=== PATIENT | male | born 2000 | race American Indian/Alaskan Native ===

== ENCOUNTER 2019-08-19 20:14 | Emergency (ER) | payer BC ==
--- NOTE | 2019-08-19 21:42 | Event Note ---
ED Screening Note Date of service: 08/19/19 Time: 20:49 ED Screening Note: 19 y old male presents to ED with SI and attempted SI with gun on saturday 4 days ago mom got the gun from patient This initial assessment/diagnostic orders/clinical plan/treatment(s) is/are subject to change based on patients health status, clinical progression and re- assessment by fellow clinical providers in the ED. Further treatment and workup at subsequent clinical providers discretion. Patient/guardian urged not to elope from the ED as their condition may be serious if not clinically assessed and managed. Initial orders include: labs,ua, main side eval
--- NOTE | 2019-08-19 22:18 | Emergency Department Report ---
ED General Adult HPI - General Chief complaint: Psych Stated complaint: SUICIDAL THOUGHTS/MH EVAL Time Seen by Provider: 08/19/19 21:47 Source: patient, family, RN notes reviewed Mode of arrival: Ambulatory Limitations: No Limitations - History of Present Illness Initial comments: This is a 19-year-old gentleman. This patient is not known to this provider previously. He presents to the ER for psychiatric evaluation. He is accompanied by his mother, Ms. Keli Sifuentes; [phone] The patient is sent to the emergency room by his therapist for psychiatric evaluation. The patient has intermittent thoughts of harming himself or harming other people. These are now resolved. The patient endorses numerous stressors with school. He reports she's been feeling this way for a while intermittently, and indicates that when he feels these thoughts, they come on quite suddenly, and he indicates that he is able to typically resolve he saw despite thinking through them. He denies physical pain. He currently does not have access to guns or firearms. His mother indicates that there is a gun at home, however, it is locked and he will not have access to it. She independently states that she feels safe to have the patient come home with her. The patient denies physical pain. The patient denies hallucinations and overdose. He has no medical complaints at this time. -: week(s), month(s) Consistency: intermittent Improves with: other (thinking through it) Worsens with: other (stress from school) - Related Data Allergies Allergy/AdvReac Type Severity Reaction Status Date / Time No Known Allergies Allergy Unverified 08/19/19 20:48 ED Review of Systems ROS: Stated complaint: SUICIDAL THOUGHTS/MH EVAL Other details as noted in HPI Constitutional: denies: fever Eyes: denies: eye discharge ENT: denies: congestion Respiratory: denies: wheezing Cardiovascular: denies: syncope Gastrointestinal: denies: abdominal pain Genitourinary: denies: dysuria Musculoskeletal: denies: back pain Skin: denies: lesions Neurological: denies: weakness Psychiatric: as per HPI, anxiety ED Past Medical Hx - Past Medical History Previous Medical History?: No - Surgical History Past Surgical History?: No - Social History Smoking Status: Current Every Day Smoker Substance Use Type: Alcohol ED Physical Exam - General Limitations: No Limitations General appearance: alert, in no apparent distress - Head Head exam: Present: atraumatic, normocephalic - Eye Eye exam: Present: normal appearance, EOMI, other (visual acuity intact to finger counting, color perception, reading at a close distance). Absent: nystagmus - ENT ENT exam: Present: normal exam, normal orophraynx, mucous membranes moist, normal external ear exam - Neck Neck exam: Present: normal inspection, full ROM. Absent: tenderness, meningismus - Respiratory Respiratory exam: Present: normal lung sounds bilaterally. Absent: respiratory distress - Cardiovascular Cardiovascular Exam: Present: regular rate, normal rhythm, normal heart sounds. Absent: bradycardia, tachycardia, irregular rhythm, systolic murmur, diastolic murmur, rubs, gallop - GI/Abdominal GI/Abdominal exam: Present: soft. Absent: distended, tenderness, guarding, rebound, rigid, pulsatile mass - Rectal Rectal exam: Present: deferred - Extremities Exam Extremities exam: Present: normal inspection, full ROM, other (2+ pulses noted in the bilateral upper, lower extremities. There is no long bone tenderness. Musculoskeletal compartments are soft. The pelvis is stable.). Absent: pedal edema, joint swelling, calf tenderness - Back Exam Back exam: Present: normal inspection, full ROM. Absent: tenderness, CVA tenderness (R), CVA tenderness (L), paraspinal tenderness, vertebral tenderness - Neurological Exam Neurological exam: Present: alert, oriented X3, normal gait, other (there is no facial droop. The tongue is midline. Extraocular movements are intact bilaterally. Patient speaking in full complete sentences. Shoulder shrug is intact bilaterally. Hearing is grossly intact bilaterally. Visual acuity intact to finger counting and color perception at a close distance. 5/5 strength 4 extremities. Sensation intact to light touch in 4 extremities.). Absent: motor sensory deficit - Psychiatric Psychiatric exam: Present: normal affect, normal mood. Absent: homicidal ideation, suicidal ideation - Skin Skin exam: Present: warm, dry, intact, normal color. Absent: rash ED Course Vital Signs 08/19/19 08/19/19 08/19/19 20:35 20:49 22:31 Temperature 98.7 F 98.7 F Pulse Rate 70 64 Respiratory 18 18 18 Rate Blood Pressure 125/64 125/64 Blood Pressure [Left] O2 Sat by Pulse 99 100 100 Oximetry 08/20/19 08/20/1919 01:48 07:00 13:00 Temperature 98.0 F 97.6 F 98.5 F Pulse Rate 61 65 67 Respiratory 18 16 18 Rate Blood Pressure Blood Pressure 132/82 113/63 124/66 [Left] O2 Sat by Pulse 99 100 98 Oximetry 08/20/19 19:05 Temperature 98.1 F Pulse Rate 60 Respiratory 18 Rate Blood Pressure Blood Pressure 124/85 [Left] O2 Sat by Pulse 99 Oximetry - Reevaluation(s) Reevaluation #1: 08/19/19 23:30 Differential diagnosis, including not limited to: Mood disorder, general medical evaluation, coping skills deficiency Assessment and plan: 19-year-old gentleman who is accompanied by his mother, he is pleasant, calm and cooperative, he does not appear to be psychotic, and he exhibits decision-making capacity. Collateral information obtained from mother indicates that the mother feels safe to take the patient home. We will obtain a formal psychiatric consultation and evaluation. At the moment, the patient does not meet 1013 criteria, or involuntary hold criteria. Screening laboratory studies unremarkable, physical examination unremarkable. Patient does not appear to have an emergent medical condition at this time. Reevaluation #2: 08/19/19 23:45 care will be transferred to Dr Diane Seymour to follow up on psych recommendations ED Medical Decision Making - Lab Data Result diagrams: 08/19/19 22:21 08/19/19 22:21 Vital Signs 08/19/19 08/19/19 08/19/19 20:35 20:49 22:31 Temperature 98.7 F 98.7 F Pulse Rate 70 64 Respiratory 18 18 18 Rate Blood Pressure 125/64 125/64 O2 Sat by Pulse 99 100 100 Oximetry Lab Results 08/19/19 08/19/19 08/19/19 Range/Units 22:21 22:21 22:21 WBC (4.5-11.0) K/mm3 RBC (3.65-5.03) M/mm3 Hgb (11.8-15.2) gm/dl Hct (35.5-45.6) % MCV (84-94) fl MCH (28-32) pg MCHC (32-34) % RDW (13.2-15.2) % Plt Count (140-440) K/mm3 Lymph % (Auto) (13.4-35.0) % [place] % (Auto) (0.0-7.3) % Eos % (Auto) (0.0-4.3) % Baso % (Auto) (0.0-1.8) % Lymph # (1.2-5.4) K/mm3 [place] # (0.0-0.8) K/mm3 Eos # (0.0-0.4) K/mm3 Baso # (0.0-0.1) K/mm3 Seg Neutrophils % (40.0-70.0) % Seg Neutrophils # (1.8-7.7) K/mm3 Sodium 138 (137-145) mmol/L Potassium 4.1 (3.6-5.0) mmol/L Chloride 101.2 (98-107) mmol/L Carbon Dioxide 26 (22-30) mmol/L Anion Gap 15 mmol/L BUN 12 (9-20) mg/dL Creatinine 1.0 (0.8-1.5) mg/dL Estimated GFR > 60 ml/min BUN/Creatinine Ratio 12 % Glucose 80 (75-100) mg/dL Calcium 9.4 (8.4-10.2) mg/dL Total Creatine Kinase (55-170) units/L Salicylates < 0.3 L (2.8-20.0) mg/dL Acetaminophen < 5.0 L (10.0-30.0) ug/mL Plasma/Serum Alcohol (0-0.07) % 08/19/19 08/19/19 08/19/19 Range/Units 22:21 22:21 22:21 WBC 3.9 L (4.5-11.0) K/mm3 RBC 4.86 (3.65-5.03) M/mm3 Hgb 15.2 (11.8-15.2) gm/dl Hct 44.3 (35.5-45.6) % MCV 91 (84-94) fl MCH 31 (28-32) pg MCHC 34 (32-34) % RDW 13.5 (13.2-15.2) % Plt Count 154 (140-440) K/mm3 Lymph % (Auto) 33.9 (13.4-35.0) % [place] % (Auto) 9.0 H (0.0-7.3) % Eos % (Auto) 3.0 (0.0-4.3) % Baso % (Auto) 0.7 (0.0-1.8) % Lymph # 1.3 (1.2-5.4) K/mm3 [place] # 0.3 (0.0-0.8) K/mm3 Eos # 0.1 (0.0-0.4) K/mm3 Baso # 0.0 (0.0-0.1) K/mm3 Seg Neutrophils % 53.4 (40.0-70.0) % Seg Neutrophils # 2.1 (1.8-7.7) K/mm3 Sodium (137-145) mmol/L Potassium (3.6-5.0) mmol/L Chloride (98-107) mmol/L Carbon Dioxide (22-30) mmol/L Anion Gap mmol/L BUN (9-20) mg/dL Creatinine (0.8-1.5) mg/dL Estimated GFR ml/min BUN/Creatinine Ratio % Glucose (75-100) mg/dL Calcium (8.4-10.2) mg/dL Total Creatine Kinase 348 H (55-170) units/L Salicylates (2.8-20.0) mg/dL Acetaminophen (10.0-30.0) ug/mL Plasma/Serum Alcohol < 0.01 (0-0.07) % Critical care attestation.: If time is entered above; I have spent that time in minutes in the direct care of this critically ill patient, excluding procedure time. ED Disposition Clinical Impression: Medical clearance for psychiatric admission Disposition: [id number]/TX-70 ANOTHER TYPE HLTHCARE Is pt being admited?: No Does the pt Need Aspirin: No Condition: Stable Referrals: PRIMARY CARE, [Primary Care Provider] - 3-5 Days
[2019-08-19 22:49] LABS: Basophils % (Auto) 0.7 % (0.0-1.8); Eosinophils # (Auto) 0.1 K/mm3 (0.0-0.4); Hematocrit 44.3 % (35.5-45.6); Hemoglobin 15.2 gm/dl (11.8-15.2); Lymphocytes # (Auto) 1.3 K/mm3 (1.2-5.4); Lymphocytes % (Auto) 33.9 % (13.4-35.0); Mean Corpuscular HGB Conc 34 % (32-34); Mean Corpuscular Volume 91 fl (84-94); Monocytes # (Auto) 0.3 K/mm3 (0.0-0.8); Platelet Count 154 K/mm3 (140-440); Red Blood Count 4.86 M/mm3 (3.65-5.03); Red Cell Distribution Width 13.5 % (13.2-15.2)
[2019-08-19 23:06] LABS: BUN/Creatinine Ratio 12; Blood Urea Nitrogen 12 mg/dL (9-20); Calcium 9.4 mg/dL (8.4-10.2); Hemolysis Index 13
[2019-08-20 09:42] LABS: Bilirubin,Urine NEG (Negative); Blood,Urine NEG (Negative); Color,Urine Yellow (Yellow); Protein,Urine <15 mg/dL mg/dL (Negative); Urobilinogen,Urine < 2.0 mg/dL (<2.0)
[2019-08-20 09:53] LABS: Amphetamine Screen,Urine PRESUMPTIVE NEGATIVE; Benzodiazepines Screen,Urine PRESUMPTIVE NEGATIVE; Cannabinoid Screen,Urine PRESUMPTIVE NEGATIVE; Cocaine Screen,Urine PRESUMPTIVE NEGATIVE; Methadone Screen,Urine PRESUMPTIVE NEGATIVE; Opiate Screen,Urine PRESUMPTIVE NEGATIVE
--- NOTE | 2019-08-20 12:14 | Consultation ---
History of Present Illness - Reason for Consult Consult date: 08/20/19 Reason for consult: Mental Health Evaluation Requesting physician: SUNDAR CALDERON - Chief Complaint Chief complaint: "I have dark thoughts" - History of Present Psychiatric Illness 19 y.o. who presented to the ER for SI/HI's. Today the patient was calm during the assessment. He stated that he has "dark thoughts" of self harm and harming others. He stated that he hear voice that he named "him." He stated that "him" tell him to do "bad things." He stated that his "dark thoughts" have been active for several years. He stated that he get a feeling at anytime to "possibly" hurt himself or kill others. He stated that he recently bought a hand gun and have been fixated with the weapon. He stated that his thoughts of harming others have gotten "out of hands." He would not confirm or deny HI's. He rate his depression 6/10, with 10 being the worse. He couldn't logically explain why he's depressed when asked. He denies SI's and VH's. He erratic sleep and a poor appetite. He denies recreational drug use and alcohol consumption (etoh). [facility] was informed of the patient's thought of harming other. Per the above note, the patient recently bought a hand gun. The patient was interviewed by [facility]. Medications and Allergies Allergies Allergy/AdvReac Type Severity Reaction Status Date / Time No Known Allergies Allergy Unverified 08/19/19 20:48 Past psychiatric history - Past Medical History Past Medical History: No medical history Past Surgical History: No surgical history - past Psychiatric treatment and history psychiatric treatment history: Per the patient, he has a therapist. Denies a fam psy hx. - Social History Social history: lives with family Mental Status Exam - Vital signs Last Vital Signs Temp 97.6 F 08/20/19 07:00 Pulse 65 08/20/19 07:00 Resp 16 08/20/19 07:00 BP 113/63 08/20/19 07:00 Pulse Ox 100 08/20/19 07:00 - Exam Narrative exam: MSE: Appearance: calm Behavior: regular eye contact Speech: regular rate and tone Mood:: "depressed" Affect: flat Thought Process: circumstantial Thought Content: denies HI's and VH's Motor Activity: ambulatory Cognition: A/O x3 Insight: variable to fair Judgment: poor Results Result Diagrams: 08/19/19 22:21 08/19/19 22:21 Abnormal lab results 08/19/19 08/19/19 08/19/19 Range/Units 22:21 22:21 22:21 WBC 3.9 L (4.5-11.0) K/mm3 [place] % (Auto) 9.0 H (0.0-7.3) % Total Creatine Kinase (55-170) units/L Salicylates < 0.3 L (2.8-20.0) mg/dL Acetaminophen < 5.0 L (10.0-30.0) ug/mL 08/19/19 Range/Units 22:21 WBC (4.5-11.0) K/mm3 [place] % (Auto) (0.0-7.3) % Total Creatine Kinase 348 H (55-170) units/L Salicylates (2.8-20.0) mg/dL Acetaminophen (10.0-30.0) ug/mL All other labs normal. Assessment and Plan Assessment and plan: Impression: Unspecified Mood DO with psy features. Today the patient was calm during the assessment. DDx: MDD with psychosis, Bipolar DO, SCAD Recommendation/Plan: Continue 1013 and start Seroquel 200 mg PO HS for mood/psychosis. Discussed possible metabolic side effects of Seroquel with the patient, he verbalized understanding. Dispo: The patient was referred to inpatient psy services. Staffed with Dr Katherine Vazquez.
[2019-08-20 20:48] VITALS: BP 124/85
[2019-08-20] MEDS ORDERED: QUEtiapine 100 MG TAB PO SCH (22:00)
== END 2019-08-20 20:36 | disposition other institution (70) ==
LOC: ED 20:14
DX: F39 Unspecified mood [affective] disorder (principal); F17.200 Nicotine dependence, unspecified, uncomplicated
CPT/HCPCS: 36415; 80048; 80307; 80320; 81001; 82550; 85025; G0480